=== PATIENT | male | born 1950 | race African-American/Black ===

== ENCOUNTER 2018-06-27 08:50 | Inpatient (IN) | payer MEDICARE, OTHER ==
[2018-06-27 09:17] LABS: ADD MAN DIFF? NO
[2018-06-27 09:21] LABS: BASOPHILS % 0.1 % (0.0-2.0); EOSINOPHILS % 0.4 % (0.0-7.0); HEMATOCRIT 41.9 % (42.0-52.0); HEMOGLOBIN 14.4 g/dl (14.0-18.0); LYMPHOCYTES # 1.9 10^3/ul (0.8-2.9); LYMPHOCYTES % 23.4 % (15.0-51.0); MEAN CORPUSCULAR HEMOGLOBIN 31.5 pg (29.0-33.0); MEAN CORPUSCULAR HGB CONC 34.4 g/dl (32.0-37.0); MEAN CORPUSCULAR VOLUME 91.7 fl (82.0-101.0); MEAN PLATELET VOLUME 11.7 fl (7.4-10.4); MONOCYTE # 0.9 10^3/ul (0.3-0.9); MONOCYTES % 11.1 % (0.0-11.0); NEUTROPHIL # 5.3 10^3/ul (1.6-7.5); NEUTROPHILS % 64.8 % (39.0-77.0); PLATELET COUNT 132 10^3/UL (140-415); POSITIVE DIFF @See below; RED BLOOD COUNT 4.57 10^6/ul (4.70-6.10); RED CELL DISTRIBUTION WIDTH 12.6 % (11.5-14.5)
[2018-06-27 09:21] LABS: WHITE BLOOD COUNT 8.2 10^3/ul (4.8-10.8)
[2018-06-27 09:42] LABS: ANION GAP 18 (8-16); BLOOD UREA NITROGEN 28 mg/dl (7-20); CALCIUM 9.8 mg/dl (8.4-10.2); CARBON DIOXIDE 28 mmol/L (21-31); CHLORIDE 109 mmol/L (97-110); CHOL/HDL RATIO 3.6 RATIO; CHOLESTEROL 149 mg/dl (100-200); CREATININE 1.66 mg/dl (0.61-1.24); GLUCOSE 117 mg/dl (70-220); HDL CHOLESTEROL 41 mg/dl (30-78); LDL CHOLESTEROL,CALCULATED 89 mg/dl; POTASSIUM 4.6 mmol/L (3.5-5.1); SODIUM 150 mmol/L (135-144); TRIGLYCERIDES 93 mg/dl (0-149)
[2018-06-27 09:48] LABS: HEMOGLOBIN A1C 5.9 % (0-5.9)
[2018-06-27 09:49] LABS: INR 1.01; PARTIAL THROMBOPLASTIN TIME 26.9 Sec (25.0-35.0); PROTIME 13.4 Sec (11.9-14.9)
[2018-06-27 09:53] LABS: TROPONIN-I 0.026 ng/ml (0.000-0.120)
[2018-06-27 11:43] LABS: ADD UMIC YES; UR ASCORBIC ACID NEGATIVE (NEGATIVE); UR BILIRUBIN (Dip) NEGATIVE (NEGATIVE); UR BLOOD (Dip) 3+ mg/dL (NEGATIVE); UR CLARITY CLEAR (CLEAR); UR COLOR YELLOW (YELLOW); UR GLUCOSE (Dip) NEGATIVE (NEGATIVE); UR KETONES (Dip) TRACE mg/dL (NEGATIVE); UR LEUKOCYTE ESTERASE (Dip) NEGATIVE Leu/ul (NEGATIVE); UR MUCUS FEW /HPF (NONE SEEN); UR NITRITE (Dip) NEGATIVE (NEGATIVE); UR RBC 1 /HPF (0-5); UR SPECIFIC GRAVITY (Dip) 1.026 (1.003-1.030); UR TOTAL PROTEIN (Dip) 1+ mg/dl (NEGATIVE); UR UROBILINOGEN (Dip) NEGATIVE (NEGATIVE); UR WBC 5 /HPF (0-5)
[2018-06-27] MEDS ORDERED: ONDANSETRON 4 MG INJ IV (18:30)
[2018-06-27] MEDS ORDERED: NACL 0.9% 3 ML SYG IV (18:30)
[2018-06-27] MEDS ORDERED: morphine 2 MG INJ IV (18:30)
[2018-06-27] MEDS: ATORVASTATIN 40 MG TAB PO (21:16)
[2018-06-27] MEDS: AMLODIPINE 5 MG TAB PO (21:18)
[2018-06-27] MEDS: DEXTROSE 5% 1,000 ML IV (21:26)
[2018-06-28] MEDS: DONEPEZIL 5 MG TAB PO (09:42)
[2018-06-28] MEDS: AMLODIPINE 5 MG TAB PO (09:42)
[2018-06-28] MEDS: ENOXAPARIN 40 MG/0.4 ML SYG SC (09:44)
[2018-06-28 11:16] LABS: ADD MAN DIFF? NO
[2018-06-28 11:17] LABS: BASOPHILS % 0.4 % (0.0-2.0); EOSINOPHILS # 0.2 10^3/ul (0.0-0.5); EOSINOPHILS % 3.2 % (0.0-7.0); HEMATOCRIT 36.8 % (42.0-52.0); HEMOGLOBIN 12.6 g/dl (14.0-18.0); LYMPHOCYTES # 1.6 10^3/ul (0.8-2.9); MEAN CORPUSCULAR HEMOGLOBIN 31.4 pg (29.0-33.0); MEAN CORPUSCULAR HGB CONC 34.2 g/dl (32.0-37.0); MEAN CORPUSCULAR VOLUME 91.8 fl (82.0-101.0); MEAN PLATELET VOLUME 12.3 fl (7.4-10.4); MONOCYTE # 0.6 10^3/ul (0.3-0.9); MONOCYTES % 11.2 % (0.0-11.0); NEUTROPHIL # 2.8 10^3/ul (1.6-7.5); PLATELET COUNT 118 10^3/UL (140-415); RED BLOOD COUNT 4.01 10^6/ul (4.70-6.10); RED CELL DISTRIBUTION WIDTH 12.8 % (11.5-14.5)
[2018-06-28 11:17] LABS: WHITE BLOOD COUNT 5.3 10^3/ul (4.8-10.8)
[2018-06-28 11:44] LABS: HEMOGLOBIN A1C 5.6 % (0-5.9)
[2018-06-28 11:56] LABS: ANION GAP 12 (8-16); BLOOD UREA NITROGEN 20 mg/dl (7-20); CALCIUM 8.9 mg/dl (8.4-10.2); CARBON DIOXIDE 25 mmol/L (21-31); CHLORIDE 112 mmol/L (97-110); CREATININE 1.12 mg/dl (0.61-1.24); GLUCOSE 113 mg/dl (70-220); MAGNESIUM 2.1 mg/dl (1.7-2.5); PHOSPHORUS 2.4 mg/dl (2.5-4.9); POTASSIUM 3.5 mmol/L (3.5-5.1); SODIUM 145 mmol/L (135-144)
[2018-06-28] MEDS: DEXTROSE 5% 1,000 ML IV (13:25)
[2018-06-28] MEDS: ATORVASTATIN 40 MG TAB PO (21:36)
[2018-06-28] MEDS: hydrALAzine 20 MG INJ IV (22:07)
[2018-06-28] MEDS: LORAZEPAM 2 MG INJ IV (22:50)
[2018-06-29] MEDS: MEMANTINE 5 MG TAB PO (08:55)
[2018-06-29] MEDS: DONEPEZIL 5 MG TAB PO (08:56)
[2018-06-29] MEDS: ENOXAPARIN 40 MG/0.4 ML SYG SC (08:56)
[2018-06-29] MEDS: AMLODIPINE 5 MG TAB PO (08:56)
[2018-06-29] MEDS: DEXTROSE 5% 1,000 ML IV (09:25)
[2018-06-29 10:11] LABS: ADD MAN DIFF? NO
[2018-06-29 10:15] LABS: BASOPHILS % 0.5 % (0.0-2.0); EOSINOPHILS # 0.2 10^3/ul (0.0-0.5); EOSINOPHILS % 2.7 % (0.0-7.0); HEMOGLOBIN 13.6 g/dl (14.0-18.0); LYMPHOCYTES # 1.9 10^3/ul (0.8-2.9); LYMPHOCYTES % 32.1 % (15.0-51.0); MEAN CORPUSCULAR HEMOGLOBIN 31.3 pg (29.0-33.0); MEAN PLATELET VOLUME 11.2 fl (7.4-10.4); MONOCYTE # 0.7 10^3/ul (0.3-0.9); MONOCYTES % 11.1 % (0.0-11.0); NEUTROPHIL # 3.2 10^3/ul (1.6-7.5); NEUTROPHILS % 53.4 % (39.0-77.0); PLATELET COUNT 130 10^3/UL (140-415); POSITIVE DIFF @See below; RED BLOOD COUNT 4.35 10^6/ul (4.70-6.10); RED CELL DISTRIBUTION WIDTH 12.6 % (11.5-14.5)
[2018-06-29 10:47] LABS: ALBUMIN 3.7 g/dl (3.3-4.9); ANION GAP 12 (8-16); BLOOD UREA NITROGEN 16 mg/dl (7-20); CALCIUM 9.7 mg/dl (8.4-10.2); CARBON DIOXIDE 29 mmol/L (21-31); CHLORIDE 107 mmol/L (97-110); CREATININE 1.03 mg/dl (0.61-1.24); GLUCOSE 95 mg/dl (70-220); MAGNESIUM 2.1 mg/dl (1.7-2.5); PHOSPHORUS 2.5 mg/dl (2.5-4.9); POTASSIUM 3.6 mmol/L (3.5-5.1); SODIUM 144 mmol/L (135-144)
[2018-06-29] MEDS: LOSARTAN 25 MG TAB PO (14:48)
[2018-06-29] MEDS ORDERED: morphine LIQ (10 MG/5 ML) CUP PO (17:00)
[2018-06-29] MEDS: ATORVASTATIN 40 MG TAB PO (20:33)
[2018-06-30 07:10] LABS: ALBUMIN 3.5 g/dl (3.3-4.9); ANION GAP 12 (8-16); BLOOD UREA NITROGEN 16 mg/dl (7-20); CALCIUM 9.2 mg/dl (8.4-10.2); CARBON DIOXIDE 28 mmol/L (21-31); CHLORIDE 107 mmol/L (97-110); CREATININE 1.07 mg/dl (0.61-1.24); GLUCOSE 107 mg/dl (70-220); MAGNESIUM 1.9 mg/dl (1.7-2.5); PHOSPHORUS 3.7 mg/dl (2.5-4.9); POTASSIUM 3.5 mmol/L (3.5-5.1); SODIUM 143 mmol/L (135-144)
[2018-06-30 07:36] LABS: AMPHETAMINE/METHAMPHETAMINE Negative (NEGATIVE); BARBITURATES Negative (NEGATIVE); BENZODIAZEPINES Negative (NEGATIVE); CANNABINOIDS Negative (NEGATIVE); COCAINE Negative (NEGATIVE); OPIATES Negative (NEGATIVE)
[2018-06-30] MEDS: ENOXAPARIN 40 MG/0.4 ML SYG SC (09:00)
[2018-06-30] MEDS: MEMANTINE 5 MG TAB PO (09:12)
[2018-06-30] MEDS: DONEPEZIL 5 MG TAB PO (09:12)
[2018-06-30] MEDS: AMLODIPINE 5 MG TAB PO (09:12)
[2018-06-30] MEDS: LOSARTAN 25 MG TAB PO ×2 (09:12→16:12)
[2018-06-30] MEDS: CITALOPRAM 20 MG TAB PO (09:13)
[2018-07-01] MEDS ORDERED: LOSARTAN 50 MG TAB PO (09:00)
== END 2018-06-30 19:00 | DRG 149 ==
LOC: E/R 08:50 → MS1 17:23
DX: R42 Dizziness and giddiness (principal); E87.0 Hyperosmolality and hypernatremia; N17.9 Acute kidney failure, unspecified; E86.0 Dehydration; I10 Essential (primary) hypertension; F03.90 Unspecified dementia, unspecified severity, without behavioral disturbance, psychotic disturbance, mood disturbance, and anxiety; F39 Unspecified mood [affective] disorder
CPT/HCPCS: 36415; 70450; 70551; 71045; 80048; 80061; 80069; 80307; 81001; 82962; 83036; 83735; 84100; 84484; 85025; 85610; 85730; 93005; 97116; 97161; 97166; 97530; 97535; 99285-25